=== PATIENT | female | born 2000 | race Caucasian/White ===

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

== ENCOUNTER 2019-10-13 16:33 | Emergency (ER) | payer OTHER ==
[2019-10-13] MEDS ORDERED: Sodium Chloride 0.9% 10 ML Syringe FLUSH PRN (16:51)
[2019-10-13] MEDS ORDERED: Sodium Chloride 0.9% 1,000 ML IV ONE (16:52)
[2019-10-13] MEDS ORDERED: Ondansetron 4 MG/2 ML SDV IV ONE (16:54)
[2019-10-13 17:26] LABS: ANION GAP 14.7 mEq/L (7-13); CHLORIDE,CL 103 mmol/L (98-107); SODIUM,NA 139 mmol/L (136-145)
--- NOTE | 2019-10-13 17:44 | EDM.PDOC ---
Scribed by Toyin Olvera 10/13/19 [id number] for Trae Rebolledo MD ED HPI GENERAL MEDICAL PROBLEM - General Chief Complaint: Syncope Stated Complaint: DEHYDRATED? PANIC ATTACKS Time Seen by Provider: 10/13/19 16:49 Source of Information: Reports: Patient, RN, RN Notes Reviewed History Limitations: Reports: No Limitations - History of Present Illness INITIAL COMMENTS - FREE TEXT/NARRATIVE: Patient presents to ED by POV stating she has panic attacks. Today she started feeling dizzy and lightheaded around 3:30 today. States she almost fainted. States she has eaten food today but has not drank anything. She complains of nausea. Denies any vomiting. Denies cough, shortness of breath or chest pain. Dizziness is worse with standing. Onset: Today Duration: Getting Worse Location: Reports: Generalized Quality: Reports: Ache Severity: Moderate Improves with: Reports: None Worsens with: Reports: None Associated Symptoms: Reports: No Other Symptoms - Related Data Allergies Allergy/AdvReac Type Severity Reaction Status Date / Time No Known Allergies Allergy Verified 10/13/19 16:52 Home Meds: Home Meds LORazepam 0.5 mg PO ASDIRECTED PRN 11/23/17 [History] DULoxetine HCl [Cymbalta] 30 mg PO DAILY 10/13/19 [History] Past Medical History - Past Health History Medical/Surgical History: Denies Medical/Surgical History ED ROS GENERAL - Review of Systems Review Of Systems: Comprehensive ROS is negative, except as noted in HPI. ED EXAM, DIZZINESS - Physical Exam Exam: See Below Exam Limited By: No Limitations General Appearance: Alert, WD/WN, No Apparent Distress Eye Exam: Bilateral Eye: EOMI, Normal Inspection, PERRL Ears: Normal External Exam Nose: Normal Inspection, Normal Mucosa, No Blood Throat/Mouth: Normal Lips, Normal Oropharynx, Normal Voice, No Airway Compromise, Other (dry oral membranes) Head Exam: Atraumatic, Normocephalic Neck: Normal Inspection, Supple, Non-Tender, Full Range of Motion Respiratory/Chest: No Respiratory Distress, Lungs Clear, Normal Breath Sounds, No Accessory Muscle Use, Chest Non-Tender Cardiovascular: Regular Rate, Rhythm, No Edema, No Murmur, Tachycardia GI/Abdominal: Normal Bowel Sounds, Soft, No Organomegaly, No Distention, No Abnormal Bruit, No Mass, Tender (mild epigastric.). No: Guarding, Rigid, Rebound (Female) Exam: Deferred Rectal (Female) Exam: Deferred Neurological: Alert, Normal Mood/Affect, Normal Dorsiflexion, CN II-XII Intact, Normal Plantar Flexion, Normal Gait, No Motor/Sensory Deficits, Oriented x 3 Back Exam: Normal Inspection, Full Range of Motion, NT Extremities: Normal Inspection, Normal Range of Motion, Non-Tender, No Pedal Edema, Normal Capillary Refill Psychiatric: Anxious, Flat Affect Skin Exam: Warm, Dry, Intact, Normal Color, No Rash EKG INTERPRETATION EKG Date: 10/13/19 Time: 17:08 Rhythm: Other (sinus rhythm) Rate (Beats/Min): 95 [place]: Normal P-Wave: Present QRS: Other (RSR orime in V1 and V2.) ST-T: Normal QT: Normal Course - Vital Signs Last Recorded V/S: Last Vital Signs Temp 97.8 F 10/13/19 17:36 Pulse 90 10/13/19 17:36 Resp 20 10/13/19 17:36 BP 115/65 10/13/19 17:36 Pulse Ox 98 10/13/19 17:36 Orthostatic Blood Pressure [ 109/73 Standing] Orthostatic Blood Pressure [ 121/78 Sitting] Orthostatic Blood Pressure [ 113/71 Supine] - Orders/Labs/Meds Orders: Active Orders 24 hr Category Date Time Status EKG 12 Lead [EKG Documentation Completion] [RC] STAT Care 10/13/19 16:51 Active Orthostatic Vital Signs [RC] ASDIRECTED Care 10/13/19 16:49 Active Peripheral IV Care [RC] . DIRECTED Care 10/13/19 16:52 Active DRUG SCREEN URINE BIORAD [URCHEM] Stat Lab 10/13/19 17:30 Received UA RFX LORRIE AND CULT IF INDIC [URIN] Stat Lab 10/13/19 17:30 Received Sodium Chloride 0.9% [Normal Saline] 1,000 ml Med 10/13/19 16:52 Active IV .BOLUS Sodium Chloride 0.9% [Saline Flush] Med 10/13/19 16:51 Active 10 ml FLUSH ASDIRECTED PRN Peripheral IV Insertion Adult [OM.PC] Stat Oth 10/13/19 16:51 Ordered Medication Orders Sodium Chloride (Normal Saline) 1,000 mls @ 999 mls/hr IV .BOLUS ONE Stop: 10/13/19 17:52 Last Admin: 10/13/19 17:05 Dose: 999 mls/hr Documented by: NAOMI Sodium Chloride (Saline Flush) 10 ml FLUSH ASDIRECTED PRN PRN Reason: Keep Vein Open Last Admin: 10/13/19 17:04 Dose: 10 ml Documented by: NAOMI Labs: Laboratory Tests 10/13/19 10/13/19 10/13/19 Range/Units 17:01 17:01 17:01 WBC 7.7 (5.0-10.0) 10^3/uL RBC 4.39 (4.2-5.4) 10^6/uL Hgb 13.4 (12.0-16.0) g/dL Hct 39.1 (37.0-47.0) % MCV 89.1 (80-100) fL MCH 30.5 (27.0-34.0) pg MCHC 34.3 (33.0-35.0) g/dL Plt Count 266 (150-450) 10^3/uL Neut % (Auto) 66.6 (42.2-75.2) % Lymph % (Auto) 19.3 L (20.5-50.1) % [place] % (Auto) 12.9 H (2-8) % Eos % (Auto) 0.9 L (1.0-3.0) % Baso % (Auto) 0.3 (0.0-1.0) % D-Dimer, Quantitative < 100 (0-400) ng/mL Sodium 139 (136-145) mmol/L Potassium 3.7 (3.5-5.1) mmol/L Chloride 103 (98-107) mmol/L Carbon Dioxide 25 (21-32) mmol/L Anion Gap 14.7 H (7-13) mEq/L BUN 9 (7-18) mg/dL Creatinine 0.72 (0.55-1.02) mg/dL Est Cr Clr Drug Dosing 88.71 mL/min Estimated GFR (MDRD) > 60 BUN/Creatinine Ratio 12.5 (No establ ref range) Glucose 95 (74-99) mg/dL Calcium 8.8 (8.5-10.1) mg/dL Total Bilirubin 0.5 (0.2-1.0) mg/dL AST 24 (15-37) U/L ALT 25 (14-59) U/L Alkaline Phosphatase 92 (46-116) U/L Total Protein 7.8 (6.4-8.2) g/dL Albumin 4.1 (3.4-5.0) g/dL Globulin 3.7 Albumin/Globulin Ratio 1.1 Urine HCG, Qual 10/13/19 Range/Units 17:30 WBC (5.0-10.0) 10^3/uL RBC (4.2-5.4) 10^6/uL Hgb (12.0-16.0) g/dL Hct (37.0-47.0) % MCV (80-100) fL MCH (27.0-34.0) pg MCHC (33.0-35.0) g/dL Plt Count (150-450) 10^3/uL Neut % (Auto) (42.2-75.2) % Lymph % (Auto) (20.5-50.1) % [place] % (Auto) (2-8) % Eos % (Auto) (1.0-3.0) % Baso % (Auto) (0.0-1.0) % D-Dimer, Quantitative (0-400) ng/mL Sodium (136-145) mmol/L Potassium (3.5-5.1) mmol/L Chloride (98-107) mmol/L Carbon Dioxide (21-32) mmol/L Anion Gap (7-13) mEq/L BUN (7-18) mg/dL Creatinine (0.55-1.02) mg/dL Est Cr Clr Drug Dosing mL/min Estimated GFR (MDRD) BUN/Creatinine Ratio (No establ ref range) Glucose (74-99) mg/dL Calcium (8.5-10.1) mg/dL Total Bilirubin (0.2-1.0) mg/dL AST (15-37) U/L ALT (14-59) U/L Alkaline Phosphatase (46-116) U/L Total Protein (6.4-8.2) g/dL Albumin (3.4-5.0) g/dL Globulin Albumin/Globulin Ratio Urine HCG, Qual Negative Meds: Medications Generic Name Dose Route Start Last Admin Trade Name Freq PRN Reason Stop Dose Admin Sodium Chloride 1,000 mls @ 999 mls/hr 10/13/19 16:52 10/13/19 17:05 Normal Saline IV 10/13/19 17:52 999 mls/hr .BOLUS ONE Administration Sodium Chloride 10 ml 10/13/19 16:51 10/13/19 17:04 Saline Flush FLUSH 10 ml ASDIRECTED PRN Administration Keep Vein Open Discontinued Medications Generic Name Dose Route Start Last Admin Trade Name Tracie PRN Reason Stop Dose Admin Ondansetron HCl 4 mg 10/13/19 16:54 10/13/19 17:02 Zofran IV 10/13/19 16:55 4 mg ONETIME ONE Administration - Re-Assessments/Exams Free Text/Narrative Re-Assessment/Exam: 10/13/19 17:41 Pt feels much better, nausea resolved, no longer feels lightheaded. She would like to be discharged home now. Departure - Departure Time of Disposition: 17:42 Disposition: Home, Self-Care 01 Condition: Good Clinical Impression: Dehydration, Orthostatic dizziness, Anxiety - Discharge Information *PRESCRIPTION DRUG MONITORING PROGRAM REVIEWED*: Not Applicable *COPY OF PRESCRIPTION DRUG MONITORING REPORT IN PATIENT VIRY: Not Applicable Instructions: Dehydration, Adult, [id number], Near-Syncope, [id number], Living With Anxiety Forms: ED Department Discharge Additional Instructions: Clear liquid diet until nausea is completely resolved, then advance to soft bland diet as tolerated. Drink plenty of water or juice. Follow up in clinic next week if needed. Sepsis Event Note (ED) - Focused Exam Vital Signs: Vital Signs Temp Pulse Resp BP BP Pulse Ox 10/13/19 17:36 97.8 F 90 20 115/65 98 10/13/19 16:50 99.4 F 105 H 22 H 115/81 96 10/13/19 16:45 99.2 F 100 14 121/78 97 - My Orders Last 24 Hours: My Active Orders 10/13/19 16:49 Orthostatic Vital Signs [RC] ASDIRECTED 10/13/19 16:51 EKG 12 Lead [EKG Documentation Completion] [RC] STAT Sodium Chloride 0.9% [Saline Flush] 10 ml FLUSH ASDIRECTED PRN Peripheral IV Insertion Adult [OM.PC] Stat 10/13/19 16:52 Peripheral IV Care [RC] . DIRECTED Sodium Chloride 0.9% [Normal Saline] 1,000 ml IV .BOLUS 10/13/19 17:30 DRUG SCREEN URINE BIORAD [URCHEM] Stat UA RFX LORRIE AND CULT IF INDIC [URIN] Stat - Assessment/Plan Last 24 Hours: My Active Orders 10/13/19 16:49 Orthostatic Vital Signs [RC] ASDIRECTED 10/13/19 16:51 EKG 12 Lead [EKG Documentation Completion] [RC] STAT Sodium Chloride 0.9% [Saline Flush] 10 ml FLUSH ASDIRECTED PRN Peripheral IV Insertion Adult [OM.PC] Stat 10/13/19 16:52 Peripheral IV Care [RC] . DIRECTED Sodium Chloride 0.9% [Normal Saline] 1,000 ml IV .BOLUS 10/13/19 17:30 DRUG SCREEN URINE BIORAD [URCHEM] Stat UA RFX LORRIE AND CULT IF INDIC [URIN] Stat I have read and agree with the documentation that has been completed regarding this visit. By signing this record, I attest that the documentation was completed in my physical presence and is an accurate record of the encounter.
== END 2019-10-13 18:12 | disposition home or self-care (01) ==
LOC: DL.ED 16:33
DX: E86.0 Dehydration (principal); F41.9 Anxiety disorder, unspecified; Z79.899 Other long term (current) drug therapy
CPT/HCPCS: 36415; 80053; 80305-QW; 81001; 81025; 85025; 85379; 87086; 93005; 96361; 96374; 99284-25; J2405; J7030

== ENCOUNTER 2023-09-18 23:48 | Inpatient (IN) | payer OTHER ==
[2023-09-18] MEDS ORDERED: Sodium Chloride 0.9% 10 ML Syringe FLUSH PRN (23:49)
[2023-09-19] MEDS: Lactated Ringers 1,000 ML IV SCH (00:28)
[2023-09-19] MEDS ORDERED: ceFAZolin 2 GM Vial ONE (00:36)
[2023-09-19] MEDS ORDERED: Oxytocin 10 Units/1 ML SDV ONE (00:36)
[2023-09-19] MEDS ORDERED: Ondansetron 4 MG/2 ML SDV ONE (00:36)
[2023-09-19] MEDS ORDERED: Ketorolac 30 MG/ML SDV ONE (00:36)
[2023-09-19] MEDS ORDERED: Succinylcholine 200 MG/10 ML MDV ONE (00:36)
[2023-09-19] MEDS ORDERED: Dexamethasone 4 MG/ML SDV ONE (00:36)
[2023-09-19 01:00] LABS: APPEARANCE,URINE SLIGHTLY CLOUDY (CLEAR); BILIRUBIN,URINE NEGATIVE (NEGATIVE); COLOR,URINE YELLOW (YELLOW); GLUCOSE,URINE NEGATIVE (NEGATIVE); KETONES,URINE NEGATIVE (NEGATIVE); LEUKOCYTE ESTERASE,URINE SMALL (NEGATIVE); NITRITE,URINE NEGATIVE (NEGATIVE); OCCULT BLOOD,URINE MODERATE (NEGATIVE); PROTEIN,URINE NEGATIVE (NEGATIVE)
[2023-09-19 01:07] LABS: BASOPHILS PERCENT AUTO 0.3 % (0.0-1.0); EOSINOPHILS PERCENT AUTO 0.6 % (1.0-3.0); HEMATOCRIT 34.5 % (37.0-47.0); HEMOGLOBIN 11.7 g/dL (12.0-16.0); LYMPHOCYTES PERCENT AUTO 16.8 % (20.5-50.1); MEAN CORPUSCULAR HEMOGLOBIN 30.6 pg (27.0-34.0); MEAN CORPUSCULAR HGB CONC 33.9 g/dL (33.0-35.0); MEAN CORPUSCULAR VOLUME 90.3 fL (80-100); MONOCYTES PERCENT AUTO 8.5 % (2-8); NEUTROPHILS PERCENT AUTO 73.8 % (42.2-75.2); PLATELET COUNT,PLT 345 10^3/uL (150-450); RED BLOOD CELL COUNT 3.82 10^6/uL (4.2-5.4); WHITE BLOOD CELL COUNT,WBC 11.4 10^3/uL (5.0-10.0)
[2023-09-19 01:10] LABS: BACTERIA,URINE MODERATE /HPF (0-FEW/HPF); EPITHELIAL CELLS,URINE MODERATE /HPF (NOT SEEN); MUCUS,URINE FEW /LPF (NOT SEEN)
[2023-09-19] MEDS ORDERED: Tranexamic Acid 1,000 MG in Sodium Chloride 0.9% 100 ML IV PRN (02:20)
[2023-09-19] MEDS ORDERED: Naloxone 2 MG/2 ML Syringe IVPUSH PRN (02:20)
[2023-09-19] MEDS ORDERED: Carboprost Tromethamine 250 MCG/1 ML Amp IM PRN (02:20)
[2023-09-19] MEDS ORDERED: Misoprostol 400 MCG (4 X 100 MCG TAB) RECTAL PRN (02:20)
[2023-09-19] MEDS ORDERED: Methylergonovine 0.2 MG/1 ML Amp IM PRN (02:20)
[2023-09-19] MEDS ORDERED: Acetaminophen/oxyCODONE 325-5 MG Tab PO PRN ×2 (02:20)
[2023-09-19] MEDS ORDERED: diphenhydrAMINE 50 MG/ML SDV IVPUSH PRN (02:20)
[2023-09-19] MEDS ORDERED: ePHEDrine 50 MG/ML SDV IVPUSH PRN (02:20)
[2023-09-19] MEDS: Oxytocin/Normal Saline 30 UNIT/500 ML BAG IV SCH (03:39)
[2023-09-19] MEDS: Ondansetron 4 MG/2 ML SDV IVPUSH PRN (04:55)
[2023-09-19] MEDS: hydrOXYzine HCl 25 MG Tab PO PRN (05:27)
[2023-09-19] MEDS: Ketorolac 30 MG/ML SDV IVPUSH SCH ×2 (05:32→08:31)
[2023-09-19] MEDS: Prenatal Multivitamin with Calcium/Folic Acid/Iron Tab PO SCH (08:30)
[2023-09-19] MEDS: Docusate Sodium 100 MG Cap PO PRN (08:30)
[2023-09-19] MEDS: Simethicone 80 MG Tab.Chew PO SCH (08:31)
[2023-09-19] MEDS: Sodium Chloride 0.9% 10 ML Syringe FLUSH SCH (09:21)
[2023-09-19 14:02] LABS: HEMATOCRIT 31.7 % (37.0-47.0); MEAN CORPUSCULAR HEMOGLOBIN 31.5 pg (27.0-34.0); MEAN CORPUSCULAR HGB CONC 34.7 g/dL (33.0-35.0); MEAN CORPUSCULAR VOLUME 90.8 fL (80-100); RED BLOOD CELL COUNT 3.49 10^6/uL (4.2-5.4); WHITE BLOOD CELL COUNT,WBC 20.7 10^3/uL (5.0-10.0)
[2023-09-19] MEDS ORDERED: Ibuprofen 800 MG Tab PO SCH (21:00)
[2023-09-20] MEDS: Ibuprofen 800 MG Tab PO SCH (02:50)
[2023-09-20] MEDS: Acetaminophen 325 MG Tab PO PRN (08:52)
[2023-09-22] MEDS: Measles, Mumps & Rubella Vaccine 0.5 ML SDV SUBCUT ONE (14:05)
[2023-09-22 20:41] LABS: BILE ACIDS, TOTAL 34 umol/L (0-10)
== END 2023-09-22 14:15 | disposition home or self-care (01) | DRG 787 ==
LOC: DL.OBCHECK 23:48 → DL.OB 09-19 00:35 → OBSVTOIN 09-19 01:23
PROVIDERS: ADMIT Student in an Organized Health Care Education/Training Program; ATTEND Student in an Organized Health Care Education/Training Program
PROC: 10D00Z1 Extraction of Products of Conception, Low, Open Approach (ICD-10-PCS; principal; 2023-09-19 00:45)
DX: O32.8XX0 Maternal care for other malpresentation of fetus, not applicable or unspecified (principal); O26.643 Intrahepatic cholestasis of pregnancy, third trimester; E78.79 Other disorders of bile acid and cholesterol metabolism; K76.89 Other specified diseases of liver; O99.334 Smoking (tobacco) complicating childbirth; F17.290 Nicotine dependence, other tobacco product, uncomplicated; O77.0 Labor and delivery complicated by meconium in amniotic fluid; Z28.39 Other underimmunization status; Z3A.36 36 weeks gestation of pregnancy; Z37.0 Single live birth; Z98.890 Other specified postprocedural states; Z86.16 Personal history of COVID-19
CPT/HCPCS: 36415; 51702; 81001; 82239; 85025; 85027; 86850; 86900; 86901; 90471; 90707; A9270-GY; J0330; J1885; J2405; J2590; J7120

== ENCOUNTER 2024-12-30 01:39 | Inpatient (IN) | payer OTHER, MEDICAID ==
[2024-12-30 02:19] LABS: BASOPHILS PERCENT AUTO 0.3 % (0.0-1.0); EOSINOPHILS PERCENT AUTO 0.6 % (1.0-3.0); LYMPHOCYTES PERCENT AUTO 20.4 % (20.5-50.1); MONOCYTES PERCENT AUTO 8.8 % (2-8); NEUTROPHILS PERCENT AUTO 69.9 % (42.2-75.2); PLATELET COUNT,PLT 327 10^3/uL (150-450); RED BLOOD CELL COUNT 3.98 10^6/uL (4.2-5.4); WHITE BLOOD CELL COUNT,WBC 8.6 10^3/uL (5.0-10.0)
[2024-12-30] MEDS ORDERED: Carboprost Tromethamine 250 MCG/1 mL Vial IM PRN (02:22)
[2024-12-30] MEDS ORDERED: Oxytocin 10 Units/1 ML SDV IM PRN (02:22)
[2024-12-30] MEDS ORDERED: Sodium Chloride 0.9% 10 ML Syringe FLUSH PRN (02:22)
[2024-12-30] MEDS: Lactated Ringers 1,000 ML IV SCH (02:25)
[2024-12-30] MEDS ORDERED: Bupivacaine 0.75%/D5W 2 ML Amp ONE (03:20)
[2024-12-30] MEDS ORDERED: Morphine PF 10 MG/10 ML SDV ONE (03:27)
[2024-12-30] MEDS: LORazepam 2 MG/ML SDV IVPUSH ONE (04:50)
[2024-12-30] MEDS ORDERED: Flumazenil 0.1 MG/ML 5 ML MDV IVPUSH PRN (04:57)
[2024-12-30] MEDS: Oxytocin/Normal Saline 30 UNIT/500 ML BAG IV SCH (05:02)
[2024-12-30] MEDS ORDERED: ePHEDrine 50 MG/ML SDV IVPUSH PRN (05:13)
[2024-12-30] MEDS ORDERED: Acetaminophen/oxyCODONE 325-5 MG Tab PO PRN ×2 (05:13)
[2024-12-30] MEDS ORDERED: diphenhydrAMINE 50 MG/ML SDV IVPUSH PRN (05:13)
[2024-12-30] MEDS ORDERED: Lactated Ringers 1,000 ML IV SCH (05:15)
[2024-12-30] MEDS: Lactated Ringers 1,000 ML IV ONE (05:30)
[2024-12-30] MEDS: Sodium Chloride 0.9% 10 ML Syringe FLUSH SCH (09:51)
[2024-12-30] MEDS: Prenatal Multivitamin with Calcium/Folic Acid/Iron Tab PO SCH (09:51)
[2024-12-30] MEDS: Ondansetron 4 MG/2 ML SDV IVPUSH PRN (10:17)
[2024-12-30] MEDS: Ketorolac 30 MG/ML SDV IVPUSH SCH ×2 (10:19→13:51)
[2024-12-30 17:08] LABS: PLATELET COUNT,PLT 244.0 10^3/uL (150-450); RED BLOOD CELL COUNT 3.46 10^6/uL (4.2-5.4); WHITE BLOOD CELL COUNT,WBC 10.3 10^3/uL (5.0-10.0)
== END 2024-12-31 12:41 | disposition home or self-care (01) | DRG 787 ==
LOC: DL.OBCHECK 01:39 → DL.MS 02:50 → OBSVTOIN 04:11 → DL.MS 04:11
PROVIDERS: ADMIT Family Medicine; ATTEND Family Medicine
PROC: 10D00Z1 Extraction of Products of Conception, Low, Open Approach (ICD-10-PCS; principal; 2024-12-30 03:00)
DX: O34.211 Maternal care for low transverse scar from previous cesarean delivery (principal); O26.643 Intrahepatic cholestasis of pregnancy, third trimester; Z37.1 Single stillbirth; Z3A.34 34 weeks gestation of pregnancy
CPT/HCPCS: 01961; 36415; 76819; 85025; 85027; 86850; 86900; 86901; A9270-GY; J0690; J1885; J2405; J2590; J3360; J7120